=== PATIENT | male | born 1950 | race Caucasian/White ===

== ENCOUNTER 2024-01-21 15:08 | Outpatient (CLI) | payer MEDICARE, SELFPAY ==
--- NOTE | 2024-01-21 15:19 | XR_ITS ---
WS: [id number] Exam: XR cervical spine 3V* [id number] Date/Time of Exam: 01/21/2024 3:35 PM Reason For Exam: arthritis of neck No acute fracture or dislocation. Slight degenerative anterolisthesis of C5 on C6. Facet arthropathy at all levels. 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 Disc space narrowing from C5-C7. Paraspinal soft tissues are u nremarkable. The odontoid is intact. Extensive bilateral carotid artery calcifications. Uncovertebral spurring at multiple levels from C4-C7. IMPRESSION: 1. No fracture or malalignment. 2. Moderately advanced degenerative changes.
== END 2024-01-21 15:09 | disposition home or self-care (01) ==
LOC: RAD 15:13
PROVIDERS: PCP Family Medicine; Visit Provider Family Medicine
DX: M47.812 Spondylosis without myelopathy or radiculopathy, cervical region (principal); M47.892 Other spondylosis, cervical region
CPT/HCPCS: 72040

== ENCOUNTER → 2024-02-01 13:11 | Outpatient (BNVA) | payer MEDICARE, SELFPAY | PROVIDERS: PCP Family Medicine; Referring Provider Family Medicine; Visit Provider Surgery | DX: K22.4 Dyskinesia of esophagus (principal) | CPT/HCPCS: 99203 ==